=== PATIENT | female | born 1965 | race Caucasian/White ===

== ENCOUNTER 2020-07-12 19:52 | Inpatient (IN) ==
[2020-07-12] MEDS ORDERED: ATROVENT HFA INHALER (PER PUFF-WITH SPACER) IH STA (20:13)
[2020-07-12] MEDS ORDERED: SOLU-MEDROL 125 MG IVP STA (20:13)
[2020-07-12] MEDS ORDERED: ROCEPHIN 1 GM/50 ML D5W 1 GM/50 ML BAG IV STA (20:13)
[2020-07-12] MEDS ORDERED: VENTOLIN HFA (PER PUFF-WITH SPACER) IH STA (20:13)
[2020-07-12 20:39] LABS: BASOPHILS # (AUTO) 0.1 K/uL (0-0.2); BASOPHILS % (AUTO) 0.5 % (0.0-3.0); EOSINOPHILS # (AUTO) 0.3 K/ul (0.0-0.7); EOSINOPHILS % (AUTO) 1.9 % (0.0-7.0); HEMATOCRIT 39.6 % (37.0-47.0); HEMOGLOBIN 13.2 g/dl (12.0-16.0); IMMATURE GRANULOCYTE # (AUTO) 0.1 (0.0-1.0); IMMATURE GRANULOCYTE % (AUTO) 0.3 % (0.0-5.0); LYMPHOCYTES # (AUTO) 2.7 K/uL (0.60-3.4); LYMPHOCYTES % (AUTO) 17.1 (10.0-50.0); MEAN CORPUSCULAR HEMOGLOBIN 29.6 pg (27.0-31.0); MEAN CORPUSCULAR HGB CONC 33.3 (31.8-35.4); MEAN CORPUSCULAR VOLUME 88.8 fl (81.0-99.0); MONOCYTES # (AUTO) 0.8 K/uL (0.4-2.0); NEUTROPHILS # (AUTO) 11.7 K/ul (2.0-6.9); NEUTROPHILS % (AUTO) 75.2 % (42.2-75.2); PLATELET COUNT 262 10^3/uL (140-440); RDW COEFFICIENT OF VARIATION 12.3 % (11.6-14.8); RED BLOOD COUNT 4.46 10^6/ul (4.20-5.40); WHITE BLOOD COUNT 15.51 K/ul (4.6-10.2)
[2020-07-12 20:48] LABS: ABG BASE EXCESS 8.4 (-2.0-2.0); ABG PH 7.44 (7.35-7.45)
[2020-07-12 20:49] LABS: ABG OXYGEN SATURATION 93.5 % (95-100); ABG TCO2 34.1 (22.0-28.0)
[2020-07-12 20:50] LABS: ABG HCO3 32.6 (22.0-26.0)
[2020-07-12 20:52] LABS: ALANINE AMINOTRANSFERASE 22.3 U/L (0-35); ALBUMIN 4.63 g/dL (3.5-5.0); ALKALINE PHOSPHATASE 85.8 U/L (38-126); ASPARTATE AMINO TRANSFERASE 23.5 U/L (14-36); CALCIUM 10.13 mg/dL (8.4-10.2); CARBON DIOXIDE 27.9 mmol/L (22-30.0); CHLORIDE 97.9 mmol/L (98-107); CREATINE KINASE 74.6 U/L (30-135); CREATININE 0.74 mg/dL (0.60-1.30); GLUCOSE 117.7 mg/dL (74-106); POTASSIUM 4.06 mmol/L (3.5-5.1); SODIUM 135.9 mmol/L (134.5-145)
[2020-07-12 21:04] LABS: TROPONIN I < 0.012 ng/ml (0.0000-0.120)
[2020-07-12 21:23] LABS: MOLECULAR FLU A NEGATIVE BY NAAT (NEGATIVE); MOLECULAR FLU B NEGATIVE BY NAAT (NEGATIVE)
[2020-07-12 21:27] LABS: FERRITIN 61.9 ng/mL (11.1-264.0)
--- NOTE | 2020-07-12 21:41 | CT ---
EXAM: CTA chest with contrast HISTORY: Dyspnea, cough TECHNIQUE: Multi-slice transaxial helical PE protocol. Multiplanar MIP and 3D volume rendered image s are provided. COMPARISON: PE chest 01/29/2020. FINDINGS: The heart is normal in size. The main pulmonary artery is normal in diameter. No evidence of pulmon mer embolism is seen. No mediastinal adenopathy is seen. Left maxillary sinus disease is partially imaged. No axillary adenopathy is seen. The partially imaged upper abdomen appears grossly unremark able. Remote right rib fractures are seen.Minimal thoracic spondylosis is seen. Minimal dependent a telectasis is seen within the left lung base. No focal airspace opacity or pleural effusion is seen. IMPRESSION: 1. No acute chest findings. No evidence of PE. 2. Partially imaged left maxillary sinus disease.
--- NOTE | 2020-07-12 21:45 | ED.PDOC ---
General ED Provider: Dr. MARIA C HALLMAN Chief Complaint: Shortness of Air Stated Complaint: i started getting sob last night and coughing up some white and yellow sputum Time Seen by Physician: 22:28 Mode of Arrival: Walk-In Information Source: Patient Primary Care Provider: ISMA SIEGEL Nursing and Triage Documentation Reviewed and Agree: Yes Does patient meet sepsis criteria?: No System Inflammatory Response Syndrome: Not Applicable Sepsis Protocol: For patient's 13 years and over: Temp is 96.8 and below OR 101 and greater Pulse >90 BPM Resp >20/minute Acutely Altered Mental Status Are patient's symptoms suggestive of a new infection, such as: -Pneumonia -Skin, Soft Tissue -Endocarditis -UTI -Bone, Joint Infection -Implantable Device -Acute Abdominal Infection -Wound Infection -Meningitis -Blood Stream Catheter Infection -Unknown Respiratory Complaint Exam Shortness of Air Complaint/Exam Onset/Duration: 24 hrs Symptoms Are: Still present Timing: Constant Initial Severity: Moderate Current Severity: Moderate Character: Reports Dyspnea at rest Aggravating: Reports URI Associated Signs and Symptoms: Reports Cough and Wheezing Home Oxygen Use: No Recent Stress Test: No Recent Echo/LV Function: No Respiratory Distress: None Stridor Present: No Tracheal Deviation: No Subcutaneous Emphysema: No Accessory Muscle Use: No Retractions: Not Present Diminished Breath Sounds: No Prolonged Expiratory Phase: Yes Unable to Speak Full Sentences: No Leg Swelling: No Evita's Sign Present: No Grunting Respirations: No Kussmaul Respirations: No Differential Diagnoses: CHF, Pulmonary Edema, Pneumonia and Pulmonary Embolism Quality Indicator For Non-Traumatic Chest Pain/Syncope: EKG Performed Review of Systems Review Of Systems Constitutional: Reports No symptoms Eyes: Reports No symptoms Ears, Nose, Mouth, Throat: Reports No symptoms Respiratory: Reports Cough, Short of air and Wheezing Cardiac: Reports No symptoms GI: Reports No symptoms : Reports No symptoms Musculoskeletal: Reports No symptoms Skin: Reports No symptoms Neurological: Reports No symptoms Endocrine: Reports No symptoms Hematologic/Lymphatic: Reports No symptoms All Other Systems: Reviewed and Negative [facility] Social History Smoking and tobacco status: Never smoker Substance use type: does not use Female Reproductive History Menstrual Hx Hysterectomy: No Hx Tubal Ligation: Yes Physical Exam Physical Exam Appearance: Reports Well-appearing Ill-appearing: None Pain Distress: None Eyes: Reports SHALINI, EOMI and Conjunctiva clear ENT: Reports Ears normal Neck: Supple Respiratory: Reports Airway patent, Rhonchi and Wheezes Cardiovascular: Reports RRR, Pulses normal and No rub GI/: Reports Soft, Nontender and No masses Musculoskeletal: Reports Normal strength, ROM intact, No edema and No calf tenderness Skin: Reports Warm, Dry and Normal color Neurological: Reports Sensation intact, Motor intact, Reflexes intact, Cranial nerves intact, Alert and Oriented Psychiatric: Reports Affect appropriate, Mood appropriate and Anxious Interpretation Radiology Interpretation Radiology Interpretation By: Radiologist Radiology Results: Negative Exam Interpreted: CT Scan EKG Interpretation Time of EKG #1: 22:25 Rate: Normal Rhythm: Sinus Ectopy: None Hyder: NL ST Segment: Normal Interpretation: sinus rythym Physician Notification Case Discussed Physician Notified: dr siegel Time of Notification: 22:26 Critical Care Note Critical Care Note Total Critical Care Time (mins): 0 Course Course Hematology/Chemistry: 07/12/20 20:30 07/12/20 20:30 Orders, Labs, Meds: Lab Review 07/12/20 07/12/20 07/12/20 20:12 20:30 20:30 WBC 15.51 H RBC 4.46 Hgb 13.2 Hct 39.6 MCV 88.8 MCH 29.6 MCHC 33.3 RDW Coeff of Brynn 12.3 Plt Count 262 Immature Gran % (Auto) 0.3 Neut % (Auto) 75.2 Lymph % (Auto) 17.1 Bell % (Auto) 5.0 Eos % (Auto) 1.9 Baso % (Auto) 0.5 Neut # (Auto) 11.7 H Lymph # (Auto) 2.7 Bell # (Auto) 0.8 Eos # (Auto) 0.3 Baso # (Auto) 0.1 Immature Gran # (Auto) 0.1 Puncture Site Lb O2 Saturation 93.5 L ABG pH 7.44 ABG pCO2 48.0 H ABG pO2 66.0 L ABG HCO3 32.6 H ABG Total CO2 34.1 H ABG Base Excess 8.4 H Alfredo Test + FiO2 % 21.0 Sodium 135.9 Potassium 4.06 Chloride 97.9 L Carbon Dioxide 27.9 Anion Gap 14.16 BUN 11.0 Creatinine 0.74 Estimated GFR (MDRD) 82.00 BUN/Creatinine Ratio 14.86 Glucose 117.7 H Lactic Acid Calcium 10.13 Ferritin Total Bilirubin 0.40 AST 23.5 ALT 22.3 Alkaline Phosphatase 85.8 Total Creatine Kinase 74.6 Troponin I < 0.012 NT-Pro-B Natriuret Pep Total Protein 8.40 H Albumin 4.63 Globulin 3.77 Albumin/Globulin Ratio 1.22 Procalcitonin Influ A Molecular Assay Influ B Molecular Assay SARS-CoV-2 RNA (RT-PCR) Miscellaneous Test 07/12/20 07/12/20 07/12/20 20:30 20:30 20:30 WBC RBC Hgb Hct MCV MCH MCHC RDW Coeff of Brynn Plt Count Immature Gran % (Auto) Neut % (Auto) Lymph % (Auto) Bell % (Auto) Eos % (Auto) Baso % (Auto) Neut # (Auto) Lymph # (Auto) Bell # (Auto) Eos # (Auto) Baso # (Auto) Immature Gran # (Auto) Puncture Site O2 Saturation ABG pH ABG pCO2 ABG pO2 ABG HCO3 ABG Total CO2 ABG Base Excess Alfredo Test FiO2 % Sodium Potassium Chloride Carbon Dioxide Anion Gap BUN Creatinine Estimated GFR (MDRD) BUN/Creatinine Ratio Glucose Lactic Acid 1.28 Calcium Ferritin 61.90 Total Bilirubin AST ALT Alkaline Phosphatase Total Creatine Kinase Troponin I NT-Pro-B Natriuret Pep 352.000 H Total Protein Albumin Globulin Albumin/Globulin Ratio Procalcitonin < 0.05 Influ A Molecular Assay Influ B Molecular Assay SARS-CoV-2 RNA (RT-PCR) Miscellaneous Test 07/12/20 07/12/20 07/12/20 20:40 20:40 20:40 WBC RBC Hgb Hct MCV MCH MCHC RDW Coeff of Brynn Plt Count Immature Gran % (Auto) Neut % (Auto) Lymph % (Auto) Bell % (Auto) Eos % (Auto) Baso % (Auto) Neut # (Auto) Lymph # (Auto) Bell # (Auto) Eos # (Auto) Baso # (Auto) Immature Gran # (Auto) Puncture Site O2 Saturation ABG pH ABG pCO2 ABG pO2 ABG HCO3 ABG Total CO2 ABG Base Excess Alfredo Test FiO2 % Sodium Potassium Chloride Carbon Dioxide Anion Gap BUN Creatinine Estimated GFR (MDRD) BUN/Creatinine Ratio Glucose Lactic Acid Calcium Ferritin Total Bilirubin AST ALT Alkaline Phosphatase Total Creatine Kinase Troponin I NT-Pro-B Natriuret Pep Total Protein Albumin Globulin Albumin/Globulin Ratio Procalcitonin Influ A Molecular Assay Negative by naat Influ B Molecular Assay Negative by naat SARS-CoV-2 RNA (RT-PCR) Miscellaneous Test Orders Category Date Time Status ABG DRAW REQUEST Stat CARDIO 07/12/20 20:12 Completed EKG-(ED ONLY) Stat CARDIO 07/12/20 20:12 Completed METERED DOSE INHALATION Routine CARDIO 07/12/20 20:15 Completed NPO REMINDER: IMAGING ONCE CARE 07/12/20 20:16 Active ED APPLY O2 .ONCE EMERGENCY 07/12/20 20:12 Active ED BIG DATA ADMIN APPLIED .ONCE EMERGENCY 07/12/20 20:12 Active ED IV/MEDIPORT/POWERPORT .ONCE EMERGENCY 07/12/20 20:12 Active ABG Stat LAB 07/12/20 20:12 Completed BLOOD CULTURE (ED ONLY) Stat LAB 07/12/20 20:30 Received CBC W/ AUTO DIFF Stat LAB 07/12/20 20:30 Completed COMPREHENSIVE METABOLIC PANEL Stat LAB 07/12/20 20:30 Completed COVID19, PCR IDPH Stat LAB 07/12/20 20:40 Completed CREATINE KINASE Stat LAB 07/12/20 20:30 Completed FERRITIN Stat LAB 07/12/20 20:30 Completed FLU A/B MOLECULAR Stat LAB 07/12/20 20:40 Completed LACTIC ACID Stat LAB 07/12/20 20:30 Completed MISCELLANEOUS SEND OUT Stat LAB 07/12/20 20:40 Completed MOLECULAR GROUP A STREP Stat LAB 07/12/20 20:40 Completed NT-PROBNP Stat LAB 07/12/20 20:30 Completed PROCALCITONIN Stat LAB 07/12/20 20:30 Completed TROPONIN I Stat LAB 07/12/20 20:30 Completed 0.9 % Sodium Chloride [Saline Flush] MEDS 07/12/20 20:11 Active 1 syr IVF PRN PRN 0.9 % Sodium Chloride [Saline Flush] MEDS 07/12/20 20:13 Active 1 syr IVF PRN PRN Albuterol Inhaler(with Spacer) [Ventolin Hfa (Per Puff- MEDS 07/12/20 20:13 Discontinued with Spacer)] 2 puff IH ONCE STA Ceftriaxone/D5w 1 gm Premix [Rocephin 1 gm/50 ml D5w] MEDS 07/12/20 20:13 Discontinued 1 gm in 50 ml IV ONCE Ipratropium Inhaler(Spacer) [Atrovent Hfa Inhaler (Per MEDS 07/12/20 20:13 Discontinued Puff-with Spacer)] 2 puff IH ONCE STA Methylprednisolone Sod Succ/Pf [Solu-Medrol 125 mg] MEDS 07/12/20 20:13 Dis continued 125 [address] IVP ONCE [address] CHEST PE PROTOCOL Stat RADS 07/12/20 20:16 Completed Medications Generic Name Dose Route Start Last Admin Trade Name Freq PRN Reason Stop Dose Admin Sodium Chloride 1 syr 07/12/20 20:11 07/12/20 21:52 0.9% Sodium Chloride 10 Ml Disp.Syrin IVF 1 syr PRN PRN Administration To flush IV Sodium Chloride 1 syr 07/12/20 20:13 0.9% Sodium Chloride 10 Ml Disp.Syrin IVF PRN PRN To flush IV Discontinued Medications Generic Name Dose Route Start Last Admin Trade Name Freq PRN Reason Stop Dose Admin Albuterol Sulfate 2 puff 07/12/20 20:13 07/12/20 21:09 Albuterol Sulfate (Ventolin Hfa) 18 Gm 1 Puff With Spacer IH 07/12/20 20:14 2 puff ONCE STA Administration CEFTRIAXONE/D5W 1 GM PREMIX 1 gm in 50 mls @ 75 mls/hr 07/12/20 20:13 07/12/20 21:53 Rocephin 1 Gm/50 Ml D5w IV 07/12/20 20:52 75 mls/hr ONCE STA Administration Ipratropium Rosebud 2 puff 07/12/20 20:13 07/12/20 21:08 Ipratropium Rosebud 12.9 Gm Hfa Inhaler Per Puff With Spacer IH 07/12/20 20:14 2 puff ONCE STA Administration Methylprednisolone Sodium Succinate 125 mg 07/12/20 20:13 07/12/20 21:53 Methylprednisolone Sod Succ/Pf 125 Mg/2 Ml Vial IVP 07/12/20 20:14 125 mg ONCE STA Administration Vital Signs: Temp Pulse Resp BP Pulse Ox 07/12/20 20:00 97.6 F 106 H 20 179/95 H 90 L Discharge Plan Discharge Patient Disposition: ADMITTED INPATIENT Discharge Problem: Acute respiratory failure Prescriptions: No Action atorvastatin 40 mg Tablet 40 mg PO BEDTIME RF: 0 sertraline [Zoloft] 100 mg Tablet 100 mg PO DAILY RF: 0 oxycodone-acetaminophen [Percocet] 10-325 mg Tablet 1 tab PO BID RF: 0 levothyroxine [Synthroid] 150 mcg Tablet 150 mcg PO DAILY RF: 0 lorazepam [Ativan] 1 mg Tablet 1 mg PO BEDTIME RF: 0 Bystolic 10 mg Tablet 10 mg PO DAILY RF: 0 furosemide [Lasix] 20 mg Tablet 20 mg PO DAILY RF: 0 potassium chloride 20 mEq Tablet Extended Release 20 meq PO DAILY RF: 0 ED Provider: MARIA C HALLMAN Condition: Fair Physician Progress Note: []
[2020-07-12] MEDS ORDERED: TYLENOL PO PRN (22:29)
[2020-07-12] MEDS ORDERED: ZOFRAN 4 MG/2 ML IVP PRN (22:56)
[2020-07-12] MEDS ORDERED: ZOFRAN 4 MG/2 ML IVP STA (22:56)
[2020-07-12 23:18] VITALS: BMI 32.5
[2020-07-12] MEDS: PROAIR HFA (SINGLE PATIENT USE) IH SCH (23:25)
[2020-07-12] MEDS ORDERED: ATROVENT HFA INHALER (PER PUFF-WITH SPACER) IH ONE (23:25)
[2020-07-12] MEDS ORDERED: VENTOLIN HFA (PER PUFF-WITH SPACER) IH ONE (23:25)
[2020-07-12] MEDS: ATROVENT HFA INHALER (SINGLE PATIENT USE) IH SCH (23:27)
[2020-07-13 05:15] LABS: BASOPHILS % (AUTO) 0.2 % (0.0-3.0); HEMATOCRIT 37.6 % (37.0-47.0); HEMOGLOBIN 12.3 g/dl (12.0-16.0); IMMATURE GRANULOCYTE # (AUTO) 0.1 (0.0-1.0); IMMATURE GRANULOCYTE % (AUTO) 0.4 % (0.0-5.0); LYMPHOCYTES # (AUTO) 0.8 K/uL (0.60-3.4); LYMPHOCYTES % (AUTO) 5.6 (10.0-50.0); MEAN CORPUSCULAR HEMOGLOBIN 29.6 pg (27.0-31.0); MEAN CORPUSCULAR HGB CONC 32.7 (31.8-35.4); MEAN CORPUSCULAR VOLUME 90.6 fl (81.0-99.0); MONOCYTES # (AUTO) 0.1 K/uL (0.4-2.0); MONOCYTES % (AUTO) 0.5 (0-10); NEUTROPHILS % (AUTO) 93.3 % (42.2-75.2); PLATELET COUNT 244 10^3/uL (140-440); RDW COEFFICIENT OF VARIATION 12.5 % (11.6-14.8); RED BLOOD COUNT 4.15 10^6/ul (4.20-5.40)
[2020-07-13 05:27] LABS: ALBUMIN 4.55 g/dL (3.5-5.0); ALKALINE PHOSPHATASE 77.7 U/L (38-126); ASPARTATE AMINO TRANSFERASE 22.6 U/L (14-36); BILIRUBIN,TOTAL 0.37 mg/dL (0.2-1.3); BLOOD UREA NITROGEN 15.3 mg/dL (7-17); CALCIUM 9.93 mg/dL (8.4-10.2); CARBON DIOXIDE 26.4 mmol/L (22-30.0); CHLORIDE 96.7 mmol/L (98-107); CREATININE 0.87 mg/dL (0.60-1.30); POTASSIUM 4.5 mmol/L (3.5-5.1); SODIUM 136.2 mmol/L (134.5-145); TOTAL PROTEIN 8.23 g/dL (6.3-8.2)
[2020-07-13 05:34] LABS: ALANINE AMINOTRANSFERASE 25.7 U/L (0-35)
[2020-07-13] MEDS ORDERED: ATROVENT HFA INHALER (PER PUFF-WITH SPACER) IH ONE (05:35)
[2020-07-13] MEDS ORDERED: VENTOLIN HFA (PER PUFF-WITH SPACER) IH ONE (05:35)
[2020-07-13] MEDS: ATROVENT HFA INHALER (SINGLE PATIENT USE) IH SCH (05:35)
[2020-07-13] MEDS: PROAIR HFA (SINGLE PATIENT USE) IH SCH (05:36)
[2020-07-13] MEDS: SOLU-MEDROL 40 MG IVP SCH ×3 (05:49→20:06)
[2020-07-13] MEDS: LASIX TAB PO SCH (05:53)
[2020-07-13] MEDS: SYNTHROID PO SCH (05:54)
[2020-07-13] MEDS ORDERED: LASIX TAB PO SCH (09:00)
[2020-07-13] MEDS ORDERED: ATROVENT HFA INHALER (SINGLE PATIENT USE) IH SCH (09:00)
[2020-07-13] MEDS ORDERED: LEVOTHYROXINE 150 MCG PO SCH (09:00)
[2020-07-13] MEDS: PERCOCET 10-325 PO SCH ×2 (09:01→20:33)
[2020-07-13] MEDS: BYSTOLIC PO SCH (09:01)
[2020-07-13] MEDS: ZOLOFT PO SCH (09:02)
[2020-07-13] MEDS: THIAMINE 100 MG in SODIUM CHLORIDE 50 ML IV SCH (09:02)
[2020-07-13] MEDS: LIBRIUM PO SCH ×4 (09:02→20:34)
[2020-07-13] MEDS: K-DUR PO SCH (09:02)
[2020-07-13] MEDS: LOVENOX SUBCUT SCH (09:03)
[2020-07-13] MEDS: ZITHROMAX 500 MG in SODIUM CHLORIDE 250 ML IV SCH (09:52)
[2020-07-13] MEDS: ATROVENT HFA INHALER (PER PUFF-WITH SPACER) IH SCH ×3 (12:52→22:35)
[2020-07-13] MEDS: VENTOLIN HFA (PER PUFF-WITH SPACER) IH SCH ×3 (12:52→22:35)
[2020-07-13] MEDS: ROCEPHIN 1 GM/50 ML D5W 1 GM/50 ML BAG IV SCH (20:06)
[2020-07-13] MEDS: LIPITOR PO SCH (20:33)
[2020-07-13] MEDS: ATIVAN PO SCH (20:33)
[2020-07-14 04:55] LABS: BASOPHILS % (AUTO) 0.1 % (0.0-3.0); HEMOGLOBIN 11.5 g/dl (12.0-16.0); IMMATURE GRANULOCYTE # (AUTO) 0.2 (0.0-1.0); IMMATURE GRANULOCYTE % (AUTO) 0.9 % (0.0-5.0); LYMPHOCYTES # (AUTO) 1.3 K/uL (0.60-3.4); LYMPHOCYTES % (AUTO) 6.1 (10.0-50.0); MEAN CORPUSCULAR HEMOGLOBIN 29.2 pg (27.0-31.0); MEAN CORPUSCULAR HGB CONC 31.9 (31.8-35.4); MEAN CORPUSCULAR VOLUME 91.4 fl (81.0-99.0); MONOCYTES # (AUTO) 0.5 K/uL (0.4-2.0); MONOCYTES % (AUTO) 2.4 (0-10); NEUTROPHILS # (AUTO) 19.3 K/ul (2.0-6.9); NEUTROPHILS % (AUTO) 90.5 % (42.2-75.2); PLATELET COUNT 234 10^3/uL (140-440); RDW COEFFICIENT OF VARIATION 12.6 % (11.6-14.8); RED BLOOD COUNT 3.94 10^6/ul (4.20-5.40); WHITE BLOOD COUNT 21.32 K/ul (4.6-10.2)
[2020-07-14] MEDS: ATROVENT HFA INHALER (PER PUFF-WITH SPACER) IH SCH ×4 (05:03→23:25)
[2020-07-14] MEDS: VENTOLIN HFA (PER PUFF-WITH SPACER) IH SCH ×4 (05:03→23:25)
[2020-07-14 05:09] LABS: ALANINE AMINOTRANSFERASE 20.1 U/L (0-35); ALBUMIN 4.35 g/dL (3.5-5.0); ALKALINE PHOSPHATASE 72.3 U/L (38-126); ASPARTATE AMINO TRANSFERASE 20.2 U/L (14-36); BILIRUBIN,TOTAL 0.28 mg/dL (0.2-1.3); BLOOD UREA NITROGEN 20.6 mg/dL (7-17); CALCIUM 9.81 mg/dL (8.4-10.2); CARBON DIOXIDE 29.7 mmol/L (22-30.0); CHLORIDE 99.3 mmol/L (98-107); CREATININE 0.73 mg/dL (0.60-1.30); GLUCOSE 166.6 mg/dL (74-106); POTASSIUM 4.5 mmol/L (3.5-5.1); SODIUM 136.9 mmol/L (134.5-145); TOTAL PROTEIN 7.99 g/dL (6.3-8.2)
[2020-07-14] MEDS: SOLU-MEDROL 40 MG IVP SCH ×3 (05:51→21:21)
--- NOTE | 2020-07-14 09:12 | PCM.PROG ---
Attending Provider: ATTENDING PROVIDER: Dr. ISMA LYON This patient is seen with Bernadine Hutchinson, Nurse Practitioner. DATE OF SERVICE: 07/14/20 SUBJECTIVE: This 55 year old /WHITE F was hospitalized 07/12/20. The patient is resting comfortably. Shortness of breath has improved, still with wheezing and cough. She is still on O2. She is scheduled for an abdominal ultrasound this morning for abdominal pain and vomiting. REVIEW OF SYSTEMS: CONSTITUTIONAL: No night sweats. No fatigue, malaise, lethargy. No fever or chills. Weakness. HEENT: Eyes: No visual changes. No eye pain. No eye discharge. ENT: No runny nose. No epistaxis. No sinus pain. No odynophagia. No congestion. RESPIRATORY: Cough, no congestion. No hemoptysis. Shortness of breath. CARDIOVASCULAR: No angina symptoms. No CHF symptoms. No atypical chest pain for CAD. No palpitations. No orthopnea.. GASTROINTESTINAL: Nausea. No diarrhea or constipation. No hematemesis. No hematochezia. GENITOURINARY: No urgency. No frequency. No dysuria. No hematuria. No obstructive symptoms. No discharge. No pain. No significant abnormal bleeding. MUSCULOSKELETAL: No musculoskeletal pain; no joint swelling. NEUROLOGICAL: Awake, alert, oriented to time, place and person. No headache. No neck pain. No syncope. No seizures. No dizziness. PSYCHIATRIC: Not anxious. No depression. No suicidal thoughts. No homicidal thoughts. SKIN: No rash. No lesions. No wounds. ENDOCRINE: No unexplained weight loss. No weight gain. HEMATOLOGIC/LYMPHATIC: No anemia. No purpura. No petechiae. No prolonged or excessive bleeding. No palpable lymph nodes. PHYSICAL EXAMINATION: GENERAL: The patient is awake, alert and oriented, lying in bed in no distress. VITAL SIGNS: Temperature 97.5 F, Pulse 63, Respiratory Rate 18, BP 112/66, Pulse Ox 98% HEENT: Head normocephalic, atraumatic. Eyes: Extraocular muscles are intact. Pupils are equal, round and reactive to light and accommodation. Ears: No lesions. Nose appeared normal. Throat: No exudate or erythema. NECK: Supple. No JVD, no carotid bruit. No lymphadenopathy or thyromegaly. LUNGS: Diminished breath sounds bilaterally. Bilaterally expiratory and inspiratory wheezing. Clear to auscultation. Percussion note normal. Chest symmetrical. HEART: S1, S2, no S3. No murmurs. No cyanosis or clubbing. No ascites. Pulses: Dorsalis pedis and posterior tibial pulses +1 to +2 both sides. ABDOMEN: Soft. Non-tender. Bowel sounds active. No CVA tenderness. No mass felt. Slight epigastric and right quadrant tenderness. EXTREMITIES: No edema. Full range of motion of all extremities, equal. NEUROLOGIC: No focal deficit. Cranial nerves II through XII are grossly intact. No headache, no double vision or headache. SKIN: Not dry. Intact. Turgor-normal. LYMPHATIC: No palpable lymph nodes/no lymphedema. MUSCULOSKELETAL: Normal joints with no swelling. Muscle tone is normal. LAB REVIEW: 07/14/20 04:45 07/14/20 04:45 07/14/20 04:45: Sodium 136.9, Potassium 4.50, Chloride 99.3, Carbon Dioxide 29.7, Anion Gap 12.40, BUN 20.6 H, Creatinine 0.73, Estimated GFR (MDRD) 83.00, BUN/Creatinine Ratio 28.21, Glucose 166.6 H, Calcium 9.81, Total Bilirubin 0.28, AST 20.2, ALT 20.1, Alkaline Phosphatase 72.3, Total Protein 7.99, Albumin 4.35, Globulin 3.64, Albumin/Globulin Ratio 1.19 07/14/20 04:45: WBC 21.32 H D, RBC 3.94 L, Hgb 11.5 L, Hct 36.0 L, MCV 91.4, MCH 29.2, MCHC 31.9, RDW Coeff of Brynn 12.6, Plt Count 234, Immature Gran % (Auto) 0.9, Neut % (Auto) 90.5 H, Lymph % (Auto) 6.1 L, Bowman % (Auto) 2.4, Eos % (Auto) 0.0, Baso % (Auto) 0.1, Neut # (Auto) 19.3 H, Lymph # (Auto) 1.3, Bowman # (Auto) 0.5, Eos # (Auto) 0.0, Baso # (Auto) 0.0, Immature Gran # (Auto) 0.2 07/13/20 05:05: TSH 1.590 07/13/20 05:05: Free T4 0.76 L 07/13/20 05:05: Hemoglobin A1c 5.56 ASSESSMENT: Please see below. 1. Acute respiratory failure, improved 2. Acute pneumonitis 3. Underlining asthma 4. Right upper quadrant pain. PLAN: 1. Right upper quadrant ultrasound 2. Repeat ABG on room air 3. Attempt to wean from O2 todya Plan and coordination of the patient's care discussed in the presence of Finance Business Manager and nurse. SCRIBED BY: Keon HOOKS scribed while in presence of service performed by Dr. Lyon/Bernadine Hutchinson APRN on 07/14/20 ([id number])
[2020-07-14] MEDS: THIAMINE 100 MG in SODIUM CHLORIDE 50 ML IV SCH (09:53)
[2020-07-14] MEDS: ZITHROMAX 500 MG in SODIUM CHLORIDE 250 ML IV SCH (10:43)
[2020-07-14] MEDS: ZOLOFT PO SCH (10:56)
[2020-07-14] MEDS: BYSTOLIC PO SCH (10:56)
[2020-07-14] MEDS: K-DUR PO SCH (10:56)
[2020-07-14] MEDS: SYNTHROID PO SCH (10:56)
[2020-07-14] MEDS: LASIX TAB PO SCH (10:56)
[2020-07-14] MEDS: PERCOCET 10-325 PO SCH ×2 (10:57→21:19)
[2020-07-14] MEDS: LIBRIUM PO SCH ×4 (10:57→21:19)
[2020-07-14] MEDS: LOVENOX SUBCUT SCH (10:59)
--- NOTE | 2020-07-14 11:16 | US ---
EXAM: Ultrasound abdomen limited right upper quadrant HISTORY: Nausea, vomiting, bloating COMPARISON: None heading TECHNIQUE: Limited ultrasound abdomen right upper quadrant was performed FINDINGS: Visualized portion pancreas appears normal. Portions of the pancreas obscured secondary t o bowel gas shadowing. Liver appears enlarged. Liver diffusely increased in echogenicity. Portions of the liver obscured secondary to bowel gas shadowing. Main portal vein patent with direction of f low. No shadowing gallstones. No gallbladder wall thickening. No pericholecystic fluid. No biliar y duct dilation with common bile duct measuring 0.6 cm. IMPRESSION: 1. Hepatic steatosis. Hepatomegaly. 2. No cholelithiasis. No gallbladder wall thickening.
[2020-07-14 12:56] LABS: ABG BASE EXCESS 5.6 (-2.0-2.0); ABG HCO3 30.4 (22.0-26.0)
[2020-07-14 12:57] LABS: ABG TCO2 31.9 (22.0-28.0)
--- NOTE | 2020-07-14 14:43 | PN ---
DATE OF SERVICE: 07/12/20 - ADMIT NOTE SUBJECTIVE: 55-year-old white female was brought to the emergency room with acute respiratory failure. The patient's blood gases clearly showed p02 of 66 with pc02 of 48, pH 7.44, 93% saturation on ABG but on coming to the emergency room the first time, the patient had pulse of 106, respiratory rate 20 with pulse oximetry of 90%. She was coughing up yellowish phlegm with shortness of breath of sudden onset. She was ruled out to have pulmonary embolism, Covid-19, CHF. Very likely the patient had bronchitis with early pneumonitis onset. The patient needed to be hospitalized with IV antibiotics, IV steroids, nebs treatment, oxygen. The patient's condition is stable. TIME SPENT: More than 30 minutes. Plan and coordination of the patient's care discussed in the presence of nurse. AGUSTIN
--- NOTE | 2020-07-14 14:51 | PN ---
DATE OF SERVICE: 07/13/20 SUBJECTIVE: 55-year-old white female patient hospitalized with acute respiratory failure, acute pneumonitis, clinically condition seems to have improved. She is feeling better, breathing better. No shortness of breath at rest. Mild cough seems to have improved. REVIEW OF SYSTEMS: CONSTITUTIONAL: No night sweats. No fatigue, malaise, lethargy. No fever or chills. HEENT: Eyes: No visual changes. No eye pain. No eye discharge. ENT: No runny nose. No epistaxis. No sinus pain. No sore throat. No odynophagia. No congestion. RESPIRATORY: Mild cough. No shortness of breath at rest. No hemoptysis. CARDIOVASCULAR: No angina symptoms. No CHF symptoms. No atypical chest pain for CAD. No palpitations. No PND. No orthopnea. GASTROINTESTINAL: No abdominal pain. No nausea or vomiting. No diarrhea or constipation. No hematemesis. No hematochezia. GENITOURINARY: No urgency. No frequency. No dysuria. No hematuria. No obstructive symptoms. No discharge. No pain. No significant abnormal bleeding. MUSCULOSKELETAL: No musculoskeletal pain; no joint swelling. NEUROLOGICAL: No headache. No neck pain. No syncope. No seizures. No dizziness. PSYCHIATRIC: Not anxious. No depression. No suicidal thoughts. No homicidal thoughts. SKIN: No rash. No lesions. No wounds. ENDOCRINE: No unexplained weight loss. No weight gain. HEMATOLOGIC/LYMPHATIC: No anemia. No purpura. No petechiae. No prolonged or excessive bleeding. No palpable lymph nodes. PHYSICAL EXAMINATION: VITAL SIGNS: Temperature 97.7, pulse 68, respiratory rate 18, blood pressure 103/64, pulse ox 93%. HEENT: Head normocephalic, atraumatic. Eyes: Extraocular muscles are intact. Pupils are equal, round and reactive to light and accommodation. Ears: No lesions. Nose appeared normal. Throat: No exudate or erythema. NECK: Supple. No JVD, no carotid bruit. No lymphadenopathy or thyromegaly. LUNGS: Decreased breath sounds but clear to auscultation. Percussion note normal. Chest symmetrical. HEART: S1, S2, no S3. No murmurs. No cyanosis or clubbing. No ascites. Pulses: Dorsalis pedis and posterior tibial pulses +1 to +2 bilaterally. ABDOMEN: Soft. Nontender. Bowel sounds active. No CVA tenderness. No mass felt. EXTREMITIES: No edema. Full range of motion of all extremities, equal. NEUROLOGIC: No focal deficit. Cranial nerves II through XII are grossly intact. No headache, no double vision or headache. SKIN: Not dry. Intact. Turgor - normal. LYMPHATIC: No palpable lymph nodes/no lymphedema. MUSCULOSKELETAL: Normal joints with no swelling. Muscle tone is normal. LABS: Hemoglobin 12.3, hematocrit 37, WBC 15,000, normal differential. Creatinine 0.8, BUN 15, potassium 4.5. ASSESSMENT: 1. Acute pneumonitis with respiratory failure. PLAN: 1. Continue steroids, nebs treatment, antibiotics and oxygen. 2. The patient had some nausea and vomiting last night and was given Zofran. The patient has some symptoms of gallbladder disease. Plan is to do ultrasound of the gallbladder, ultrasound of the liver. 3. Will also do T4, TSH and A1C. CONDITION: Stable. Note: The patient's BMI is 32, advised to lose weight, advised to be physically active. Will talk about it later on once the patient's condition improves. The patient will undergo echo to evaluate LV function. The patient's blood sugar is 216 which is mainly attributed to steroid therapy but will do A1C. TIME SPENT: More than 30 minutes. Plan and coordination of the patient's care discussed in the presence of nurse. AGUSTIN
[2020-07-14] MEDS: LIPITOR PO SCH (21:18)
[2020-07-14] MEDS: ATIVAN PO SCH (21:19)
[2020-07-14] MEDS: ROCEPHIN 1 GM/50 ML D5W 1 GM/50 ML BAG IV SCH (21:19)
[2020-07-15] MEDS: VENTOLIN HFA (PER PUFF-WITH SPACER) IH SCH (05:02)
[2020-07-15] MEDS: ATROVENT HFA INHALER (PER PUFF-WITH SPACER) IH SCH (05:02)
[2020-07-15] MEDS: SOLU-MEDROL 40 MG IVP SCH (05:51)
[2020-07-15 06:20] LABS: BASOPHILS % (AUTO) 0.1 % (0.0-3.0); EOSINOPHILS % (AUTO) 0.1 % (0.0-7.0); HEMATOCRIT 35.4 % (37.0-47.0); HEMOGLOBIN 11.1 g/dl (12.0-16.0); IMMATURE GRANULOCYTE # (AUTO) 0.3 (0.0-1.0); IMMATURE GRANULOCYTE % (AUTO) 1.4 % (0.0-5.0); LYMPHOCYTES # (AUTO) 1.6 K/uL (0.60-3.4); LYMPHOCYTES % (AUTO) 9.4 (10.0-50.0); MEAN CORPUSCULAR HEMOGLOBIN 29.2 pg (27.0-31.0); MEAN CORPUSCULAR HGB CONC 31.4 (31.8-35.4); MEAN CORPUSCULAR VOLUME 93.2 fl (81.0-99.0); MONOCYTES # (AUTO) 0.6 K/uL (0.4-2.0); MONOCYTES % (AUTO) 3.5 (0-10); NEUTROPHILS % (AUTO) 85.5 % (42.2-75.2); PLATELET COUNT 230 10^3/uL (140-440); RDW COEFFICIENT OF VARIATION 12.8 % (11.6-14.8); WHITE BLOOD COUNT 17.48 K/ul (4.6-10.2)
[2020-07-15 06:30] LABS: ALBUMIN 3.95 g/dL (3.5-5.0); ALKALINE PHOSPHATASE 61.3 U/L (38-126); ASPARTATE AMINO TRANSFERASE 22.7 U/L (14-36); BILIRUBIN,TOTAL 0.23 mg/dL (0.2-1.3); BLOOD UREA NITROGEN 20.1 mg/dL (7-17); CALCIUM 9.11 mg/dL (8.4-10.2); CARBON DIOXIDE 28.4 mmol/L (22-30.0); CREATININE 0.7 mg/dL (0.60-1.30); GLUCOSE 191.7 mg/dL (74-106); POTASSIUM 4.42 mmol/L (3.5-5.1); SODIUM 136.2 mmol/L (134.5-145); TOTAL PROTEIN 7.22 g/dL (6.3-8.2)
--- NOTE | 2020-07-15 08:35 | HP ---
DATE OF SERVICE: 07/12/20 REASON FOR HOSPITALIZATION/HISTORY OF PRESENT ILLNESS: The patient is a 55-year-old white female who presented to the emergency room with shortness of breath. She stated she started getting short of breath the night before, began coughing, had some white and yellow sputum. No fever. Dr. Carballo did a rapid swab and sent it to [facility], which was negative for Covid. She was also negative for influenza. She has a history of anxiety, noncompliant. PAST MEDICAL HISTORY: Panic attacks Depression Anxiety History of multiple rib fractures History of back spasms Generalized osteoarthritis Fibromyalgia History of alcohol abuse Hypertension Dyslipidemia Hypothyroidism Plantar fascitis Leg edema PAST SURGICAL HISTORY: History of breast reduction Colonoscopy in October [address] Chao Again history of noncompliance with diet, lifestyle, medications and followup REVIEW OF SYSTEMS: CONSTITUTIONAL: Weakness. No night sweats. No fatigue, malaise, lethargy. No fever or chills. HEENT: Eyes: No visual changes. No eye pain. No eye discharge. ENT: No runny nose. No epistaxis. No sinus pain. No sore throat. No odynophagia. No ear pain. No congestion. RESPIRATORY: Positive for shortness of breath, coughing, weakness. No hemoptysis. CARDIOVASCULAR: No angina symptoms. No CHF symptoms. No atypical chest pain for CAD. No palpitations. No PND. No orthopnea. GASTROINTESTINAL: No abdominal pain. No nausea or vomiting. No diarrhea or constipation. No hematemesis. No hematochezia. GENITOURINARY: No urgency. No frequency. No dysuria. No hematuria. No obstructive symptoms. No discharge. No pain. No significant abnormal bleeding. MUSCULOSKELETAL: No musculoskeletal pain. No joint swelling. No arthritis. NEUROLOGICAL: No headache. No neck pain. No syncope. No seizures. No dizziness. PSYCHIATRIC: Not anxious. No depression. No suicidal thoughts. No homicidal thoughts. SKIN: No rash. No lesions. No wounds. ENDOCRINE: No unexplained weight loss. No weight gain. HEMATOLOGIC/LYMPHATIC: No anemia. No purpura. No petechiae. No prolonged or excessive bleeding. No palpable lymph nodes. PERSONAL/FAMILY/SOCIAL HISTORY: She is . Nonsmoker. She lives with her . Denies any alcohol or ilicit drug use. MEDICATIONS: (HOME) Lorazepam (Ativan) 1 mg p.o. bedtime Oxycodone-Acetaminophen 10-325 mg one tab p.o. b.i.d. Atorvastatin 40 mg p.o. bedtime Sertraline 100 mg p.o. daily Nebivolol (Bystolic) 10 mg p.o. daily Levothyroxine (Synthroid) 150 mcg p.o. daily Potassium Chloride 20 mEq p.o. daily Furosemide (Lasix) 20 mg p.o. daily ALLERGIES: NKDA PHYSICAL EXAMINATION: VITAL SIGNS: Temperature 97.6, heart rate 106, respiratory rate 20, blood pressure 179/95, pulse ox 90%. HEENT: Head normocephalic, atraumatic. Eyes: Extraocular muscles are intact. Pupils are equal, round and reactive to light and accommodation. Ears: No lesions. Nose appeared normal. Throat: No exudate or erythema. NECK: Supple. No JVD, no carotid bruit. No lymphadenopathy or thyromegaly. LUNGS: Diminished breath sounds bilaterally with inspiratory and expiratory wheezing noted bilaterally. The patient is visibly short of breath with mild retractions. Clear to auscultation. Percussion note normal. Chest symmetrical. HEART: S1, S2, no S3. No murmur. No cyanosis or clubbing. No ascites. Pulses: Dorsalis pedis and posterior tibial pulses +1 to +2 bilaterally. ABDOMEN: Soft. Nontender. Bowel sounds active. No CVA tenderness. No mass felt. EXTREMITIES: No edema. Full range of motion of all extremities, equal. NEUROLOGIC: No focal deficit. Cranial nerves II through XII are grossly intact. No headache, no double vision or headache. SKIN: Not dry. Intact. Turgor - normal. LYMPHATIC: No palpable lymph nodes/no lymphedema. MUSCULOSKELETAL: Normal joints with no swelling. Muscle tone is normal. LAB REVIEW: White count 15.51, hemoglobin 13.2, hematocrit 39.6, platelets 262. Sodium 135, potassium 4.06, BUN 11, creatinine 0.74, glucose 117. ABGs on room air: 02 sat 93, pH 7.44, pc02 48, p02 66, bicarb 32.6, total c02 34.1, base excess of 8.4, AST 23, ALT 22, troponin less than 0.012. Total protein 8.4, albumin 4.6, globulin 3.7, ferritin 61.9, lactic acid 1.28, pro-BNP 352. CTA of the chest shows no acute chest findings, no evidence of PE. Remote right rib fractures which were previously seen. ASSESSMENT: 1. ACUTE PNEUMONITIS, SHORTNESS OF BREATH. 2. ACUTE RESPIRATORY FAILURE. 3. HYPERTENSION. 4. DYSLIPIDEMIA. 5. ANXIETY. 6. HYPOTHYROIDISM. 7. HISTORY OF NONCOMPLIANCE WITH DIET, MEDICATIONS, LIFESTYLE AND FOLLOWUP. PLAN: 1. Routine telemetry orders. 2. We will admit. 3. CBC, CMP daily. 4. Continue home medications. 5. Start Rocephin 1 gm IV daily. 6. Start Zithromax 500 mg IV daily times three days. 7. Solu-Medrol 40 mg IV q.12 hr. 8. Start Albuterol inhaler two puffs t.i.d. scheduled. 9. Symbicort inhaler 160 two puffs b.i.d. 10. UA. 11. Oxygen at 1 to 2L via nasal cannula. 12. NS IV at 75 cc/hr. 13. Regular diet. 14. Will follow closely. TIME SPENT: More than 70 minutes. MTDD
--- NOTE | 2020-07-15 08:39 | ECHO2D ---
Date of Exam: 07/14/2020 Ordering Physician: DR. ISMA LYON Room #: [id number] Reason for Echo: DYSPNEA, RESPIRATORY FAILURE M-Mode Normal Adult Results LV Dimensions Normal Adult Results AoV Opening excursions >1.6 >1.6 LVEDD-base- 3.5-5.8 5.3 Ao root dimensions 2.0-3.7 2.9 LVESD-base- 3.1-4.6 L. Atrium dimensions 1.9-3.8 3.8 Post. Wall thickness 0.8-1.1 1.2 IV septum (thickness) 0.7-1.2 1.2 Post. Wall excursion 0.72-1.3 NORMAL Septal motion NORMAL Systolic motion R. Ventricular cavity 1.5-2.0 NORMAL LVEF 60% 59% Paradoxical septal wall motion NORMAL 2-D : 2-D M Mode Echocardiogram was performed using apical four chamber and left parasternal long and short axis views. Mitral, tricuspid and aortic valves appear to be normal. Contractility of the left ventricle seems to be normal, so is the cavity size. Left atrial cavity size and aortic root appear to be normal. There is no pericardial effusion. There is no thrombus noted in the left ventricle or left atrial cavity. No mitral valve prolapse noted. M-MODE: MV: NORMAL AV: NORMAL TV: NORMAL PV: CHAMBER SIZE: NORMAL WALL MOTION: NORMAL PERICARDIUM: NORMAL INTERPRETATION: 1. NORMAL 2 "D" "M" MODE ECHO MTDD
[2020-07-15] MEDS: ZOLOFT PO SCH (09:34)
[2020-07-15] MEDS: SYNTHROID PO SCH (09:35)
[2020-07-15] MEDS: BYSTOLIC PO SCH (09:35)
[2020-07-15] MEDS: K-DUR PO SCH (09:35)
[2020-07-15] MEDS: PERCOCET 10-325 PO SCH ×2 (09:36→20:13)
[2020-07-15] MEDS: LIBRIUM PO SCH ×4 (09:36→20:13)
[2020-07-15] MEDS: THIAMINE 100 MG in SODIUM CHLORIDE 50 ML IV SCH (09:36)
[2020-07-15] MEDS: LASIX TAB PO SCH (09:36)
[2020-07-15] MEDS: LOVENOX SUBCUT SCH (09:37)
[2020-07-15] MEDS: ALBUTEROL 0.083% NEB NEB SCH ×3 (10:07→19:20)
[2020-07-15] MEDS: ZITHROMAX 500 MG in SODIUM CHLORIDE 250 ML IV SCH (10:48)
--- NOTE | 2020-07-15 11:11 | NM ---
EXAM: HEPATOBILIARY SCAN. DATE:07/15/2020. COMPARISONnone. HISTORYabdominal pain. TECHNIQUE: The patient was injected with 5.2of Tc-99m mebrofenin and imaging of the abdomen was perfo rmed for 1 hour. The patient was then injected with 2mcg of CCKand imaging performed for an addition al 30 minutes. A gallbladder ejection fraction was calculated. FINDINGS: There is a normal and physiologic uptake of the radiotracer by the hepatocytes.Activity is observed in the gallbladder by 15minutes. Activity in the small bowel is observed by 60minutes. The gallbladder ejection fraction is 94%. IMPRESSION: Normal hepatobiliary scan and gallbladder ejection fraction.
--- NOTE | 2020-07-15 13:26 | PN ---
DATE OF SERVICE: 07/14/20 SUBJECTIVE: The patient was seen and examined with the nurse practitioner. The patient's condition seems to be improving slowly but still has mild cough and congestion. She is afebrile. Appetite is improving. Gallbladder ultrasound was negative for gallstones. Liver showed hepatic steatosis, discussed with the patient about it. Advised to quit drinking alcohol, lose weight, at least 20 to 30 lbs. The patient may undergo HIDA scan. TIME SPENT: More than 30 minutes. Plan and coordination of the patient's care discussed in the presence of nurse. AGUSTIN
[2020-07-15] MEDS: SOLU-CORTEF 250 MG IVP SCH ×2 (14:00→20:33)
--- NOTE | 2020-07-15 14:41 | PN ---
DATE OF SERVICE: 07/12/20 The History and Physical on this patient was done with the nurse practitioner. AGUSTIN
[2020-07-15] MEDS: PULMICORT 1 MG/2 ML NEB SCH (19:20)
[2020-07-15] MEDS: LIPITOR PO SCH (20:13)
[2020-07-15] MEDS: ROCEPHIN 1 GM/50 ML D5W 1 GM/50 ML BAG IV SCH (20:13)
[2020-07-15] MEDS: ATIVAN PO SCH (20:13)
[2020-07-16] MEDS: ALBUTEROL 0.083% NEB NEB SCH ×3 (04:50→14:05)
[2020-07-16] MEDS: PULMICORT 1 MG/2 ML NEB SCH (04:50)
[2020-07-16 05:18] LABS: BASOPHILS % (AUTO) 0.1 % (0.0-3.0); HEMATOCRIT 35.9 % (37.0-47.0); HEMOGLOBIN 11.4 g/dl (12.0-16.0); IMMATURE GRANULOCYTE # (AUTO) 0.3 (0.0-1.0); IMMATURE GRANULOCYTE % (AUTO) 2.2 % (0.0-5.0); LYMPHOCYTES # (AUTO) 2.6 K/uL (0.60-3.4); MEAN CORPUSCULAR HEMOGLOBIN 29.6 pg (27.0-31.0); MEAN CORPUSCULAR HGB CONC 31.8 (31.8-35.4); MEAN CORPUSCULAR VOLUME 93.2 fl (81.0-99.0); MONOCYTES # (AUTO) 0.7 K/uL (0.4-2.0); MONOCYTES % (AUTO) 5.1 (0-10); NEUTROPHILS # (AUTO) 10.7 K/ul (2.0-6.9); NEUTROPHILS % (AUTO) 74.6 % (42.2-75.2); PLATELET COUNT 235 10^3/uL (140-440); RDW COEFFICIENT OF VARIATION 12.9 % (11.6-14.8); RED BLOOD COUNT 3.85 10^6/ul (4.20-5.40)
[2020-07-16 05:28] LABS: ALANINE AMINOTRANSFERASE 18.9 U/L (0-35); ALBUMIN 3.91 g/dL (3.5-5.0); BILIRUBIN,TOTAL 0.23 mg/dL (0.2-1.3); BLOOD UREA NITROGEN 14.7 mg/dL (7-17); CALCIUM 9.45 mg/dL (8.4-10.2); CARBON DIOXIDE 27.7 mmol/L (22-30.0); CHLORIDE 101.4 mmol/L (98-107); CREATININE 0.65 mg/dL (0.60-1.30); GLUCOSE 306.9 mg/dL (74-106); POTASSIUM 3.9 mmol/L (3.5-5.1); SODIUM 136.3 mmol/L (134.5-145); TOTAL PROTEIN 7.13 g/dL (6.3-8.2)
[2020-07-16 05:53] VITALS: BP 155/84; TEMP 98.7
[2020-07-16] MEDS: SYNTHROID PO SCH (05:53)
[2020-07-16] MEDS: LASIX TAB PO SCH (05:53)
[2020-07-16] MEDS: SOLU-CORTEF 250 MG IVP SCH ×2 (06:13→13:36)
[2020-07-16] MEDS: ZOLOFT PO SCH (08:32)
[2020-07-16] MEDS: BYSTOLIC PO SCH (08:32)
[2020-07-16] MEDS: PERCOCET 10-325 PO SCH (08:33)
[2020-07-16] MEDS: LIBRIUM PO SCH ×2 (08:33→13:31)
[2020-07-16] MEDS: K-DUR PO SCH (08:33)
[2020-07-16] MEDS: LOVENOX SUBCUT SCH (08:33)
[2020-07-16] MEDS: THIAMINE 100 MG in SODIUM CHLORIDE 50 ML IV SCH (09:34)
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
== END 2020-07-16 14:55 | disposition home or self-care (01) | DRG 204 ==
LOC: ED 19:57 → MEDSURG B 22:33
PROVIDERS: ADMIT Internal Medicine; ATTEND Internal Medicine
DX: R73.9 Hyperglycemia, unspecified; M19.90 Unspecified osteoarthritis, unspecified site; E78.5 Hyperlipidemia, unspecified; R10.11 Right upper quadrant pain; I10 Essential (primary) hypertension; J18.9 Pneumonia, unspecified organism; R05 Cough; F41.3 Other mixed anxiety disorders; R06.02 Shortness of breath; R60.0 Localized edema; J45.909 Unspecified asthma, uncomplicated; J06.9 Acute upper respiratory infection, unspecified